=== PATIENT | female | born 1950 | race Caucasian/White ===

== ENCOUNTER 2016-12-18 06:22 | Day surgery (SDC) | payer MEDICARE, OTHER ==
[2016-12-18] MEDS ORDERED: Lactated Ringers 1,000 ML IV SCH (07:00)
[2016-12-18] MEDS ORDERED: fentaNYL 100 MCG/2 ML SDV ONE (07:28)
[2016-12-18] MEDS ORDERED: Propofol 200 MG/20 ML SDV ONE (07:28)
[2016-12-18] MEDS ORDERED: Midazolam 1 MG/ML 2 ML SDV ONE (07:28)
[2016-12-18] MEDS ORDERED: Ampicillin 2 GM in Sodium Chloride 0.9% 100 ML IV ONE (07:30)
[2016-12-18 09:32] VITALS: BP 106/79
--- NOTE | 2016-12-19 07:23 | OR ---
DATE OF PROCEDURE: 12/18/2016 PREOPERATIVE DIAGNOSIS: Colon cancer screening. POSTOPERATIVE DIAGNOSIS: Unremarkable colonoscopy. PROCEDURE: Colonoscopy to the cecum. SURGEON: Rafa Ryan MD. ANESTHESIA: IV anesthesia with monitored anesthesia care. INDICATION: This 66-year-old white female is referred for a colonoscopy for colon cancer screening. She says her last colonoscopic exam was done ten years ago. I counseled her for the procedure including risks and alternatives, and she gave her informed consent to proceed. DESCRIPTION OF PROCEDURE: The patient was placed in the left lateral decubitus position. IV anesthesia was administered by the Anesthesia Service. Time-out was held. A rectal exam was performed, which was unremarkable. The flexible video Olympus colonoscope was introduced through her anus, up her rectum, and out her colon all the way to the cecum. To accomplish this, we had to apply abdominal compression. Once the cecum was reached, the scope was slowly withdrawn, examining the mucosa throughout. No mucosal abnormalities were noted. The scope was retroflexed in the rectum with the distal rectum appearing unremarkable. The scope was straightened and removed. She tolerated the procedure well. Rafa Ryan MD /[id number]
== END 2016-12-18 10:00 | disposition home or self-care (01) ==
LOC: JP.SDS 06:22
PROVIDERS: ATTEND Surgery
DX: Z12.11 Encounter for screening for malignant neoplasm of colon (principal); I10 Essential (primary) hypertension; E78.00 Pure hypercholesterolemia, unspecified; Z98.890 Other specified postprocedural states; Z88.2 Allergy status to sulfonamides; Z88.8 Allergy status to other drugs, medicaments and biological substances; Z90.49 Acquired absence of other specified parts of digestive tract; Z95.2 Presence of prosthetic heart valve
CPT/HCPCS: G0121; J0290; J2250; J2704; J3010; J7030; J7120

== ENCOUNTER 2019-05-15 05:07 | Emergency (ER) | payer MEDICARE ==
[2019-05-15 05:20] VITALS: BP 126/76; PULSE 75
--- NOTE | 2019-05-15 06:02 | EDM.PDOC ---
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 Her tried to get her attention and then she just went unresponsive. She was breathing but would not communicate, she was just in a catatonic-like state for almost 20 minutes. She then started coming around about the time the ambulance arrived, she was able to get up and walk to the ambulance but does not remember anything until she was in the ambulance, does not remember most of yesterday but is completely asymptomatic otherwise. No fevers or chills, no headache, no recent trauma, no visual disturbances, no peripheral weakness or numbness. Apparently during that time she was incontinent of urine but had no seizure-like activity. Onset: Sudden Duration: Hour(s): (2 hours ago) Associated Symptoms: Reports: Confusion, Other (Confusion and memory loss are her only symptoms) denies Pain Score (Numeric/FACES): 0 - Related Data Allergies Allergy/AdvReac Type Severity Reaction Status Date / Time brimonidine Allergy Rash Verified 12/18/16 07:04 Sulfa (Sulfonamide Allergy Rash Verified 12/15/16 08:58 Antibiotics) Home Meds: Home Meds Lisinopril 20 mg PO DAILY 09/05/14 [History] Metoprolol Tartrate [Lopressor] 25 mg PO BID 09/05/14 [History] Simvastatin 10 mg PO DAILY 09/05/14 [History] Alendronate Sodium 70 mg PO WEEKLY 01/18/15 [History] Aspirin 325 mg PO DAILY 01/18/15 [History] Calcium Carbonate [Calcium] 500 tab PO DAILY 01/18/15 [History] Vitamin B Complex 1 tab PO DAILY 01/18/15 [History] guaiFENesin [Guaifenesin] 100 mg PO DAILY 01/18/15 [History] Amoxicillin 2,000 mg PO ASDIRECTED PRN 12/15/16 [History] amLODIPine [Norvasc] 5 mg PO DAILY 12/15/16 [History] Past Medical History HEENT History: Reports: Glaucoma, Sinusitis Cardiovascular History: Reports: Bacterial Endocarditis, Heart Valve Replacement , High Cholesterol, Hypertension Other Cardiovascular History: Endocarditis. Bradycardia Gastrointestinal History: Reports: None Genitourinary History: Reports: None STORAGE BATTERY INSPECTOR History: Reports: Other STORAGE BATTERY INSPECTOR History: Ovarian cyst Musculoskeletal History: Reports: Arthritis, Fracture, Osteoarthritis, Osteoporosis Neurological History: Reports: TIA, Other (See Below) Other Neuro History: TGA transit global amnesia Hematologic History: Reports: Anemia, Blood Transfusion(s) - Infectious Disease History Infectious Disease History: Reports: Chicken Pox, Measles, Mumps, Shingles - Past Surgical History HEENT Surgical History: Reports: Cataract Surgery, Oral Surgery, Tonsillectomy Cardiovascular Surgical History: Reports: Valve Replacement GI Surgical History: Reports: Appendectomy, Colonoscopy Female Surgical History: Reports: Cystectomy Social & Family History - Family History Family Medical History: Noncontributory - Tobacco Use Smoking Status *Q: Never Smoker Second Hand Smoke Exposure: No - Caffeine Use Caffeine Use: Reports: Coffee, Tea - Alcohol Use Days Per Week of Alcohol Use: 0 - Recreational Drug Use Recreational Drug Use: No ED ROS GENERAL - Review of Systems Review Of Systems: See Below Constitutional: Denies: Fever, Chills, Malaise HEENT: Denies: Vision Change Respiratory: Denies: Shortness of Breath, Cough Cardiovascular: Denies: Chest Pain, Palpitations GI/Abdominal: Denies: Abdominal Pain, Nausea, Vomiting Musculoskeletal: Reports: Other (Recent knee pain was felt to be arthritis) Skin: Reports: No Symptoms Neurological: Reports: Confusion, Other (No repetitive questioning after the event). Denies: Headache, Trouble Speaking Psychiatric: Reports: Confusion. Denies: Anxiety, Depression ED EXAM, GENERAL - Physical Exam Exam: See Below Exam Limited By: No Limitations General Appearance: Alert, No Apparent Distress Eye Exam: Bilateral Eye: Normal Inspection Head: Atraumatic Neck: Other (Mild fullness or goiter may be present, no tenderness or asymmetry) Respiratory/Chest: No Respiratory Distress, Lungs Clear Cardiovascular: Regular Rate, Rhythm, Systolic Murmur (Fairly pronounced systolic murmur and a valve click is heard) GI/Abdominal: Soft, Non-Tender Extremities: Normal Inspection. No: Pedal Edema Neurological: Alert, Oriented, No Motor/Sensory Deficits, Memory Loss Recent Events Psychiatric: Normal Affect, Normal Mood Skin Exam: Warm, Dry Course - Vital Signs Last Recorded V/S: Last Vital Signs Temp 96.5 F L 05/15/19 05:19 Pulse 75 05/15/19 05:19 Resp 13 05/15/19 05:19 BP 126/76 05/15/19 05:19 Pulse Ox 97 05/15/19 05:19 - Orders/Labs/Meds Labs: Laboratory Tests 05/15/19 05/15/19 05/15/19 Range/Units 06:19 06:19 06:19 WBC 5.6 (4.5-11.0) K/uL RBC 4.44 (3.30-5.50) M/uL Hgb 13.1 (12.0-15.0) g/dL Hct 40.7 (36.0-48.0) % MCV 92 (80-98) fL MCH 30 (27-31) pg MCHC 32 (32-36) % Plt Count 199 (150-400) K/uL Neut % (Auto) 60 (36-66) % Lymph % (Auto) 27 (24-44) % [place] % (Auto) 8 H (2-6) % Eos % (Auto) 4 (2-4) % Baso % (Auto) 1 (0-1) % Sodium 145 (140-148) mmol/L Potassium 3.6 (3.6-5.2) mmol/L Chloride 108 (100-108) mmol/L Carbon Dioxide 27 (21-32) mmol/L Anion Gap 10.4 (5.0-14.0) mmol/L BUN 21 H (7-18) mg/dL Creatinine 0.9 (0.6-1.0) mg/dL Est Cr Clr Drug Dosing 54.14 mL/min Estimated GFR (MDRD) > 60 (>60) Glucose 99 (74-106) mg/dL Calcium 8.3 L (8.5-10.1) mg/dL TSH, Ultra Sensitive 2.051 (0.358-3.740) uIU/mL - Re-Assessments/Exams Free Text/Narrative Re-Assessment/Exam: 05/15/19 06:02 CBC, BMP and TSH were drawn as well as a head CT without contrast was obtained. Patient got up and went to the bathroom, voided 900 cc without difficulty. 05/15/19 06:[address] is negative, CBC is normal. If chemistry profile and TSH are normal patient should be able to go home. 05/15/19 06:53 Labs are all reassuring and the patient remained asymptomatic Departure - Departure Time of Disposition: 07:10 Disposition: Home, Self-Care 01 Clinical Impression: Change in mental status Qualifiers: Altered mental status type: disorientation Qualified Code(s): R41.0 - Disorientation, unspecified - Discharge Information Instructions: Confusion Referrals: Prashant Hernandez MD [Primary Care Provider] - Forms: ED Department Discharge Care Plan Goals: Continue any medications and resume diet and activity as tolerated. Return anytime if worsening or concerns. Sepsis Event Note - Evaluation Sepsis Screening Result: No Definite Risk - Focused Exam Vital Signs: Vital Signs Temp Pulse Resp BP Pulse Ox 05/15/19 05:19 96.5 F L 75 13 126/76 97 Date Exam was Performed: 05/15/19 Time Exam was Performed: 17:18
--- NOTE | 2019-05-15 06:28 | CRLCT ---
INDICATION: Confusion and amnesia TECHNIQUE: CT head without contrast. COMPARISON: 12/20/2018 FINDINGS: CSF spaces: Within normal limits for age. Brain parenchyma and extra-axial spaces: The yu-white differentiation is normal. No sign of mass, hemorrhage, or midline shift. No extra-axial fluid collection. Skull base and calvarium: The visualized paranasal sinuses and mastoid air cells demonstrate no acute or significant findings. The visualized orbits are grossly unremarkable. No skull fractures. IMPRESSION: Unremarkable noncontrast head CT. Dictated by Karl Vera MD @ 05/15/2019 6:28:12 AM Please note that all CT scans at this facility use dose modulation, iterative reconstruction, and/or weight-based dosing when appropriate to reduce radiation dose to as low as reasonably achievable. Dictated by: aKrl Vera MD @ 05/15/2019 06:28:15 (Electronically Signed)
== END 2019-05-15 07:12 | disposition home or self-care (01) ==
LOC: JP.ED 05:07
DX: R41.0 Disorientation, unspecified (principal); M19.90 Unspecified osteoarthritis, unspecified site; E78.00 Pure hypercholesterolemia, unspecified; Z79.82 Long term (current) use of aspirin; Z86.73 Personal history of transient ischemic attack (TIA), and cerebral infarction without residual deficits; Z79.899 Other long term (current) drug therapy; Z88.2 Allergy status to sulfonamides; Z88.8 Allergy status to other drugs, medicaments and biological substances
CPT/HCPCS: 36415; 70450; 80048; 84443; 85025; 99283; 99285-25

== ENCOUNTER 2020-03-28 16:07 | Emergency (ER) | payer MEDICARE ==
[2020-03-28 16:27] VITALS: BP 163/91; PULSE 80
[2020-03-28] MEDS ORDERED: Proparacaine 0.5% Ophth Soln 15 ML Bottle EYERT ONE (16:31)
[2020-03-28] MEDS ORDERED: Ketorolac 60 MG/2 ML SDV IM ONE (16:57)
--- NOTE | 2020-03-28 17:07 | EDM.PDOC ---
ED HPI GENERAL MEDICAL PROBLEM - General Chief Complaint: Head Injury Stated Complaint: VOMITING,EYE PAIN Time Seen by Provider: 03/28/20 16:40 Source of Information: Reports: Patient, Family History Limitations: Reports: No Limitations - History of Present Illness INITIAL COMMENTS - FREE TEXT/NARRATIVE: 69-year-old female presents with significant sharp pain in her right eye for the past 2 hours after an injury. She had a significant procedure on the right eye 1 month ago where she had a "shunt placed". She had been doing well, but earlier this afternoon she bent over and struck the upper aspect of the eye on some type of metal structure. Since that time she has had sharp pain just above the eye, nausea and vomiting, and is becoming worried she may have caused a ser ious injury to the eye especially in respect to her recent surgery. Vision is not blurred. Onset: Sudden Duration: Hour(s): (2 hours ago) Location: Reports: Other Improves with: Reports: Other (Pain is decreased if she rests and closes her eye) Worsens with: Reports: Other (Movement of the eye or attempting to open the eye brings sharp pain to the upper aspect of the eyeball underneath her eyelid and under the eyebrow) Associated Symptoms: Reports: Nausea/Vomiting, Syncope (Several times she has felt like she almost faints due to the discomfort), Other (Headache on the right side). Denies: Chest Pain, Cough, Shortness of Breath - Related Data Allergies Allergy/AdvReac Type Severity Reaction Status Date / Time brimonidine Allergy Rash Verified 03/28/20 16:18 Sulfa (Sulfonamide Allergy Rash Verified 03/28/20 16:18 Antibiotics) Home Meds: Home Meds Lisinopril 20 mg PO DAILY 09/05/14 [History] Metoprolol Tartrate [Lopressor] 25 mg PO BID 09/05/14 [History] Simvastatin 10 mg PO DAILY 09/05/14 [History] Alendronate Sodium 70 mg PO WEEKLY 01/18/15 [History] Aspirin 325 mg PO DAILY 01/18/15 [History] Calcium Carbonate [Calcium] 500 tab PO DAILY 01/18/15 [History] Vitamin B Complex 1 tab PO DAILY 01/18/15 [History] guaiFENesin [Guaifenesin] 100 mg PO DAILY 01/18/15 [History] amLODIPine [Norvasc] 5 mg PO DAILY 12/15/16 [History] OXcarbazepine [Trileptal] 1 tab PO DAILY 03/28/20 [History] Past Medical History HEENT History: Reports: Glaucoma, Sinusitis Cardiovascular History: Reports: Bacterial Endocarditis, Heart Valve Replacement, High Cholesterol, Hypertension Other Cardiovascular History: Endocarditis. Bradycardia Gastrointestinal History: Reports: None Genitourinary History: Reports: None WOUND/OSTOMY NURSE History: Reports: Other WOUND/OSTOMY NURSE History: Ovarian cyst Musculoskeletal History: Reports: Arthritis, Fracture, Osteoarthritis, Osteoporosis Neurological History: Reports: TIA, Other (See Below) Other Neuro History: TGA transit global amnesia Hematologic History: Reports: Anemia, Blood Transfusion(s) - Infectious Disease History Infectious Disease History: Reports: Chicken Pox, Measles, Mumps, Shingles - Past Surgical History HEENT Surgical History: Reports: Cataract Surgery, Oral Surgery, Tonsillectomy Other HEENT Surgeries/Procedures: laser treatment and stents for glaucoma Cardiovascular Surgical History: Reports: Valve Replacement GI Surgical History: Reports: Appendectomy, Colonoscopy Female Surgical History: Reports: Cystectomy Other Female Surgeries/Procedures: ovarian cyst removed Neurological Surgical History: Reports: None Musculoskeletal Surgical History: Reports: None Social & Family History - Family History Family Medical History: No Pertinent Family History - Tobacco Use Tobacco Use Status *Q: Never Tobacco User - Caffeine Use Caffeine Use: Reports: Coffee, Tea ED ROS GENERAL - Review of Systems Review Of Systems: See Below Constitutional: Reports: Malaise. Denies: Fever, Chills HEENT: Reports: Eye Pain. Denies: Vision Change Respiratory: Denies: Shortness of Breath Cardiovascular: Denies: Chest Pain GI/Abdominal: Denies: Nausea, Vomiting Musculoskeletal: Reports: No Symptoms Skin: Reports: No Symptoms Neurological: Reports: Headache ED EXAM, HEAD INJURY - Physical Exam Exam: See Below Exam Limited By: No Limitations General Appearance: Alert, Mild Distress Head: Atraumatic Eyes: Right Eye: Conjunctival Injection, Other (There is significant erythema over the upper sclera of the right eye), Bilateral Eye: EOMI Neck: Non-Tender Respiratory: No Respiratory Distress, Lungs Clear Neurologic: No Motor/Sensory Deficits, Oriented x 3 Course - Vital Signs Last Recorded V/S: Last Vital Signs Temp 98.0 F 03/28/20 16:26 Pulse 80 03/28/20 16:26 Resp 14 03/28/20 16:26 BP 163/91 H 03/28/20 16:26 Pulse Ox 96 03/28/20 16:26 - Orders/Labs/Meds Orders: Active Orders 24 hr Category Date Time Status Ondansetron [Zofran ODT] Med 03/28/20 17:14 Once 4 mg PO ONETIME ONE Meds: Medications Discontinued Medications Generic Name Dose Route Start Last Admin Trade Name Tisha PRN Reason Stop Dose Admin Ketorolac Tromethamine 60 mg 03/28/20 16:57 03/28/20 17:02 Toradol IM 03/28/20 16:58 60 mg ONETIME ONE Administration Proparacaine HCl 1 ml 03/28/20 16:31 03/28/20 16:37 Proparacaine 0.5% Ophth Soln EYERT 03/28/20 16:32 2 drop ONETIME ONE Administration - Re-Assessments/Exams Free Text/Narrative Re-Assessment/Exam: 03/28/20 17:19 Proparacaine drops were placed into the right eye. After resting she did not think the drops helped the pain much. The eye was then fluorescein stained and there was significant irritation and abrasion to the scleral area of the upper eye but the cornea itself looked clear. A Roberto-Pen was then used to measure the pressure and the result was 18. Ophthalmology in [place] on-call was consulted over the phone and the recommendations were for her to come to [place] for an exam. She was given 4 mg of sublingual Zofran and 60 mg of IM Toradol prior to discharge. She will stay n.p.o. and go directly to the eye clinic [facility] and meet with Dr. Heck. Departure - Departure Time of Disposition: 17:21 Disposition: DC/Tfer to Other 70 Clinical Impression: Blunt injury, right eye Qualifiers: Encounter type: initial encounter Qualified Code(s): S05.8X1A - Other injuries of right eye and orbit, initial encounter - Discharge Information Instructions: Corneal Abrasion, [id number] Referrals: Prashant Hernandez MD [Primary Care Provider] - Forms: ED Department Discharge Care Plan Goals: Dr. Márquez is planning on meeting you at the eye clinic at 7:30 this evening. His cell phone number is [phone]. It is at [address] [place] [address]. Do not eat or drink anything prior to the exam. Please call the doctor if you are going to be delayed for any reason Sepsis Event Note (ED) - Evaluation Sepsis Screening Result: No Definite Risk - Focused Exam Vital Signs: Vital Signs Temp Pulse Resp BP Pulse Ox 03/28/20 16:26 98.0 F 80 14 163/91 H 96 - My Orders Last 24 Hours: My Active Orders 03/28/20 17:14 Ondansetron [Zofran ODT] 4 mg PO ONETIME ONE - Assessment/Plan Last 24 Hours: My Active Orders 03/28/20 17:14 Ondansetron [Zofran ODT] 4 mg PO ONETIME ONE
[2020-03-28] MEDS ORDERED: Ondansetron 4 MG Tab.DIS PO ONE (17:14)
== END 2020-03-28 17:37 | disposition other institution (70) ==
LOC: JP.ED 16:07
DX: S05.91XA Unspecified injury of right eye and orbit, initial encounter (principal); E78.00 Pure hypercholesterolemia, unspecified; I10 Essential (primary) hypertension; Z88.2 Allergy status to sulfonamides; Z88.8 Allergy status to other drugs, medicaments and biological substances; M19.90 Unspecified osteoarthritis, unspecified site; Z79.82 Long term (current) use of aspirin; Z86.73 Personal history of transient ischemic attack (TIA), and cerebral infarction without residual deficits; Z79.899 Other long term (current) drug therapy; W22.8XXA Striking against or struck by other objects, initial encounter
CPT/HCPCS: 96372; 99283; A9270; J1885

== ENCOUNTER 2020-10-03 08:50 | Emergency (ER) | payer MEDICARE ==
[2020-10-03 09:03] VITALS: BP 130/76; PULSE 59
--- NOTE | 2020-10-03 09:26 | EDM.PDOC ---
ED HPI GENERAL MEDICAL PROBLEM - General Chief Complaint: Lower Extremity Injury/Pain Stated Complaint: FELL DOWN STAIRS Time Seen by Provider: 10/03/20 09:05 Source of Information: Reports: Patient, Family History Limitations: Reports: No Limitations - History of Present Illness INITIAL COMMENTS - FREE TEXT/NARRATIVE: 70-year-old female stepped off of a stairway without knowing it was present and stumbled forward hitting the bottom of both feet on concrete last evening. Today she has significant pain in both feet, swelling, and unable to bear weight. No other injury, the right is worse than the left. Onset: Sudden Duration: Hour(s): (About 12 hours ago) Location: Reports: Lower Extremity, Left, Lower Extremity, Right Quality: Reports: Sharp, Stabbing Worsens with: Reports: Other (Weightbearing), Movement Associated Symptoms: Reports: No Other Symptoms Bilateral Ankle Pain Score (Numeric/FACES): 2 - Related Data Allergies Allergy/AdvReac Type Severity Reaction Status Date / Time brimonidine Allergy Rash Verified 10/03/20 09:03 Sulfa (Sulfonamide Allergy Rash Verified 10/03/20 09:03 Antibiotics) Home Meds: Home Meds Lisinopril 20 mg PO DAILY 09/05/14 [History] Metoprolol Tartrate [Lopressor] 25 mg PO BID 09/05/14 [History] Simvastatin 10 mg PO DAILY 09/05/14 [History] Alendronate Sodium 70 mg PO WEEKLY 01/18/15 [History] Aspirin 325 mg PO DAILY 01/18/15 [History] Calcium Carbonate [Calcium] 500 tab PO DAILY 01/18/15 [History] Vitamin B Complex 1 tab PO DAILY 01/18/15 [History] guaiFENesin [Guaifenesin] 100 mg PO DAILY 01/18/15 [History] amLODIPine [Norvasc] 5 mg PO DAILY 12/15/16 [History] OXcarbazepine [Trileptal] 1 tab PO BID 03/28/20 [History] Amoxicillin 500 mg PO ASDIRECTED PRN 10/03/20 [History] Mv-Mn/FA/Vit K/Lycop/Lut/Zeaxa [Ocuvite Eye + Multi Tablet] 1 tab PO DAILY 10/03/20 [History] Past Medical History HEENT History: Reports: Glaucoma, Sinusitis Cardiovascular History: Reports: Bacterial Endocarditis, Heart Valve Replacement, High Cholesterol, Hypertension Other Cardiovascular History: Endocarditis. Bradycardia Gastrointestinal History: Reports: None Genitourinary History: Reports: None HYDRAMATIC SPECIALIST History: Reports: Other HYDRAMATIC SPECIALIST History: Ovarian cyst Musculoskeletal History: Reports: Arthritis, Fracture, Osteoarthritis, Osteoporosis Neurological History: Reports: TIA, Other (See Below) Other Neuro History: TGA transit global amnesia Hematologic History: Reports: Anemia, Blood Transfusion(s) - Infectious Disease History Infectious Disease History: Reports: Chicken Pox, Measles, Mumps, Shingles - Past Surgical History HEENT Surgical History: Reports: Cataract Surgery, Oral Surgery, Tonsillectomy Other HEENT Surgeries/Procedures: laser treatment and stents for glaucoma Cardiovascular Surgical History: Reports: Valve Replacement GI Surgical History: Reports: Appendectomy, Colonoscopy Female Surgical History: Reports: Cystectomy Other Female Surgeries/Procedures: ovarian cyst removed Neurological Surgical History: Reports: None Musculoskeletal Surgical History: Reports: None Social & Family History - Family History Family Medical History: No Pertinent Family History - Tobacco Use Tobacco Use Status *Q: Never Tobacco User - Caffeine Use Caffeine Use: Reports: Coffee - Recreational Drug Use Recreational Drug Use: No Review of Systems - Review of Systems Review Of Systems: See Below Constitutional: Denies: Fever Respiratory: Reports: No Symptoms Cardiovascular: Reports: No Symptoms GI/Abdominal: Reports: No Symptoms Musculoskeletal: Reports: Foot Pain (Bilateral) Skin: Reports: Bruising (Started to develop a small amount of bruising around the right foot and ankle) Neurological: Reports: No Symptoms. Denies: Paresthesia Psychiatric: Reports: No Symptoms ED EXAM, GENERAL - Physical Exam Exam: See Below Exam Limited By: No Limitations General Appearance: Alert, No Apparent Distress Head: Atraumatic Respiratory/Chest: No Respiratory Distress Extremities: Other (Exam is otherwise limited the lower extremities. She has diffuse swelling and significant tenderness to palpation around the right ankle and right foot. There is less swelling on the left foot, just minimal tenderness to palpation of the lateral and medially malleoli and forefoot) Neurological: Alert, Oriented Course - Vital Signs Last Recorded V/S: Last Vital Signs Temp 97.2 F 10/03/20 09:02 Pulse 59 L 10/03/20 09:02 Resp 16 10/03/20 09:02 BP 130/76 10/03/20 09:02 Pulse Ox 98 10/03/20 09:02 - Orders/Labs/Meds Orders: Active Orders 24 hr Category Date Time Status Ankle Min 3V Lt [CR] Stat Exams 10/03/20 09:22 Taken Ankle Min 3V Rt [CR] Stat Exams 10/03/20 09:22 Taken Foot Comp Min 3V Lt [CR] Stat Exams 10/03/20 09:22 Taken Foot Comp Min 3V Rt [CR] Stat Exams 10/03/20 09:22 Taken - Re-Assessments/Exams Free Text/Narrative Re-Assessment/Exam: 10/03/20 09:26 X-rays of both feet and ankles were obtained. 10/03/20 10:15 All x-rays surprisingly are negative. 4 inch Uli wraps were applied to each foot and ankle, subjectively she felt better with the support. She is going to continue wrapping the ankles, elevate when able, ibuprofen 3-4 times a day and increase activity as tolerated. A podiatry consult may be necessary later this week if not improving. Departure - Departure Time of Disposition: 10:18 Disposition: Home, Self-Care 01 Clinical Impression: Contusion of foot, right Qualifiers: Encounter type: initial encounter Qualified Code(s): S90.31XA - Contusion of right foot, initial encounter Contusion of foot, left Qualifiers: Encounter type: initial encounter Qualified Code(s): S90.32XA - Contusion of left foot, initial encounter - Discharge Information Instructions: Contusion, [id number] Referrals: Prashant Hernandez MD [Primary Care Provider] - Forms: ED Department Discharge Care Plan Goals: Wrap for support, 600 to 800 mg of ibuprofen up to 4 times daily along with Tylenol, and increase activity as tolerated. Consider a podiatry or orthopedic consult if not improving in the next 3 to 5 days. Sepsis Event Note (ED) - Evaluation Sepsis Screening Result: No Definite Risk - Focused Exam Vital Signs: Vital Signs Temp Pulse Resp BP Pulse Ox 10/03/20 09:02 97.2 F 59 L 16 130/76 98 - My Orders Last 24 Hours: My Active Orders 10/03/20 09:22 Ankle Min 3V Lt [CR] Stat Ankle Min 3V Rt [CR] Stat Foot Comp Min 3V Lt [CR] Stat Foot Comp Min 3V Rt [CR] Stat - Assessment/Plan Last 24 Hours: My Active Orders 10/03/20 09:22 Ankle Min 3V Lt [CR] Stat Ankle Min 3V Rt [CR] Stat Foot Comp Min 3V Lt [CR] Stat Foot Comp Min 3V Rt [CR] Stat
--- NOTE | 2020-10-04 12:37 | CR ---
Ankle Min 3V Rt, CLINICAL HISTORY: Injury FINDINGS: The soft tissues are moderately swollen over the lateral malleolus. There is a transverse fracture through distal fibula. Ankle mortise is anatomic.. Impression: Nondisplaced fracture distal fibula FOOT RIGHT 3 views CLINICAL HISTORY:Injury FINDINGS:There is no fracture or osseous lesion. There is mild joint space narrowing the first MTP joint. Impression: No fracture or dislocation
--- NOTE | 2020-10-04 12:39 | CR ---
Foot Comp Min 3V Lt, Ankle Min 3V Lt CLINICAL HISTORY: Injury FINDINGS: There is no acute fracture or dislocation within the foot. No destructive changes are present. IMPRESSION: No acute bony process. Foot Comp Min 3V Lt, Ankle Min 3V Lt CLINICAL HISTORY: Injury FINDINGS: The soft tissues are swollen over the lateral malleolus. No acute fracture or dislocation is noted. Ankle mortise is intact. Impression: Negative
== END 2020-10-03 10:28 | disposition home or self-care (01) ==
LOC: JP.ED 08:50
DX: S90.31XA Contusion of right foot, initial encounter (principal); S90.32XA Contusion of left foot, initial encounter; E78.00 Pure hypercholesterolemia, unspecified; I10 Essential (primary) hypertension; Z79.82 Long term (current) use of aspirin; X50.1XXA Overexertion from prolonged static or awkward postures, initial encounter; Z79.899 Other long term (current) drug therapy
CPT/HCPCS: 73610-26-LT; 73610-26-RT; 73610-LT; 73610-RT; 73630-26-LT; 73630-26-RT; 73630-LT; 73630-RT; 99283-25

== ENCOUNTER 2022-02-07 21:40 | Emergency (ER) | payer MEDICARE ==
[2022-02-07 21:59] VITALS: BP 142/76; PULSE 66
== END 2022-02-07 23:18 | disposition home or self-care (01) ==
LOC: JP.ED 21:40
DX: S70.12XA Contusion of left thigh, initial encounter (principal); R55 Syncope and collapse; E87.1 Hypo-osmolality and hyponatremia; N30.00 Acute cystitis without hematuria; E78.00 Pure hypercholesterolemia, unspecified; Z88.8 Allergy status to other drugs, medicaments and biological substances; Z88.2 Allergy status to sulfonamides; Z79.899 Other long term (current) drug therapy; Z79.82 Long term (current) use of aspirin; Z90.49 Acquired absence of other specified parts of digestive tract
CPT/HCPCS: 36415; 73552-LT; 80048; 81001; 85025; 87086; 93005; 99284